=== PATIENT | male | born 2000 | race Caucasian/White ===

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

== ENCOUNTER → 2021-07-28 | Outpatient (REF) | payer BC | LOC: M LAB REF 15:04 | PROVIDERS: ATTEND Physician Assistant Medical | DX: R51.9 Headache, unspecified (principal); R53.83 Other fatigue ==

== ENCOUNTER 2024-05-27 09:30 | Day surgery (SDC) | payer OTHER ==
[~2024-05-27] VITALS: Ht 162.6 cm; Wt 78.0 kg
[~2024-05-27 09:30] MED LIST: ESOM40CA35 PO
[2024-05-27] MEDS ORDERED: propofoL 200 MG/20 ML VIAL As Ordered ONE (10:58)
[2024-05-27] MEDS ORDERED: LIDOCAINE 2% 100MG/5ML SDV (FOR ANES.) As Ordered ONE (10:59)
[2024-05-27 11:05] VITALS: TEMP 97.2
[2024-05-27 11:25] VITALS: BP 129/71; O2SAT 98
== END 2024-05-27 11:34 | disposition home or self-care (01) ==
LOC: M OPP 09:30
PROVIDERS: ATTEND Surgery
DX: K44.9 Diaphragmatic hernia without obstruction or gangrene (principal); K22.89 Other specified disease of esophagus; Z88.1 Allergy status to other antibiotic agents; Z88.8 Allergy status to other drugs, medicaments and biological substances; Z79.899 Other long term (current) drug therapy; F17.290 Nicotine dependence, other tobacco product, uncomplicated